=== PATIENT | female | born 1980 | race Two or more races ===

== ENCOUNTER 2016-10-15 17:49 | Emergency (ER) | payer OTHER ==
[~2016-10-15] VITALS: Ht 157.5 cm; Wt 59.0 kg
[2016-10-15 18:08] VITALS: BP 121/74
[2016-10-15] MEDS ORDERED: Norco 5mg/325mg tab ORAL ONE (18:45)
--- NOTE | 2016-10-15 19:02 | Emergency Room Report ---
History of Present Illness General Chief Complaint: Upper Extremity Injury Source: Patient Present Illness HPI 36 YO Female presents to the ED c/o 10/31 localized pain and tenderness to the left middle finger after it was accidentally slammed in a door earlier today at work. Pt states palpation and movement exacerbate the pain. denies bruises, reports some swelling. denies previous injury to the affected extremity. Denies numbness tingling or loss of sensation or gross motor movements of the extremities, incontinence of bowel or bladder. Denies CP, Palpitations, LOC, AMS , dizziness, Changes in Vision, Sensation, paresthesias, or a sudden severe headache. Allergies: Coded Allergies: No Known Allergies (Unverified , 10/15/16) Patient History Past Medical History: see triage record Past Surgical History: none Pertinent Family History: none Last Menstrual Period: 08/30/16 Now: No : 2 Para: 2 Reviewed Nursing Documentation: PMH: Agreed, PSxH: Agreed Nursing Documentation-PMH Hx Asthma: Yes Review of Systems All Other Systems: negative except mentioned in HPI Physical Exam Vital Signs Date Time Temp Pulse Resp B/P (MAP) Pulse Ox O2 Delivery O2 Flow Rate FiO2 10/15/16 17:58 98.2 80 18 121/74 99 Room Air Sp02 EP Interpretation: reviewed, normal General Appearance: no apparent distress, alert, GCS 15, non-toxic Head: normocephalic, atraumatic Eyes: bilateral eye normal inspection, bilateral eye PERRL ENT: hearing grossly normal, normal voice Neck: full range of motion Respiratory: lungs clear, normal breath sounds, speaking full sentences Cardiovascular #1: regular rate, rhythm, normal capillary refill Musculoskeletal: back normal, gait/station normal, normal range of motion, other - no evidence of subungual hematoma, tender - TTP to the PIP and DIP of the left middle finger, no obvious deformity, painful ROM, good capillary refill , no bruising. Neurologic: alert, oriented x3, responsive, motor strength/tone normal, sensory intact, speech normal Psychiatric: judgement/insight normal, memory normal, mood/affect normal Skin: normal color, no rash, warm/dry, well hydrated Medical Decision Making PA Attestation Dr. Moody is my supervising Physician whom patient management has been discussed with. Diagnostic Impression: Primary Impression: Fracture of finger of left hand Qualified Codes: S62.653A - Nondisplaced fracture of medial phalanx of left middle finger, initial encounter for closed fracture ER Course Pt. presents to the ED c/o 10/31 localized pain and tenderness to the left middle finger after it was accidentally slammed in a door earlier today at work. Ddx considered but are not limited to Fracture, dislocation, contusion, Sprain/ Strain/Spasm, Epidural abscess, Neoplastic mets. Vital signs: are WNL, pt. is afebrile H&PE are most consistent with musculoskeletal injury will perform imaging to r/ o fractures/dislocations. ORDERS: - X-ray Left hand 3 views - Positive for non-displaced distal middle phalanx fx of the left middle finger , Dislocation, or significant soft tissue injury, per preliminary read in ED by Dr. Moody - interpretation is scribed by ZELALEM. ED INTERVENTIONS: -[facility] PO -Finger Splint applied to the middle finger by cardiac technician. Pt. remains neurovascularly intact. DISCHARGE: At this time pt. is stable for d/c to home. Will provide printed patient care instructions, and any necessary prescriptions. Care plan and follow up instructions have been discussed with the patient prior to discharge. Last Vital Signs Date Time Temp Pulse Resp B/P (MAP) Pulse Ox O2 Delivery O2 Flow Rate FiO2 10/15/16 18:08 98.2 85 18 121/74 99 Room Air Disposition: HOME, SELF-CARE Condition: Stable Scripts Ibuprofen* (MOTRIN*) 600 Mg Tablet 600 MG ORAL THREE TIMES A DAY, #20 TAB 0 Refills Prov: Fely Perez P.A. 10/15/16 Hydrocodone Bit/Acetaminophen 5-325* (NORCO 5-325*) 1 Each Tablet 1 TAB ORAL Q6H Y for For Pain, #10 TAB 0 Refills Prov: Fely Perez P.A. 10/15/16 Referrals: NOT CHOSEN IPA/MD,REFERRING (PCP) Patient Instructions: Finger Fracture Additional Instructions: Take medications as directed. Follow up with a Primary Care Provider in 3-5 days, even if your symptoms have resolved. --Please review list of primary care clinics, if you do not already have a primary care provider Return sooner to ED if new symptoms occur, or current symptoms become worse. Do not drink alcohol, drive, or operate heavy machinery while taking [place] as this may cause drowsiness. - Please note that this Emergency Department Report was dictated using DocASAPsteel melter technology software, occasionally this can lead to erroneous entry secondary to interpretation by the dictation equipment. Fely Perez Oct 15, 2016 19:02
[2016-10-15] MEDS ORDERED: IBUPROFEN600 MG ORAL (19:03)
[2016-10-15] MEDS ORDERED: NORCO 5-325 TA1 EACH ORAL (19:03)
[2016-10-15 19:23] VITALS: BP 121/74
--- NOTE | 2016-10-16 08:52 | Diagnostic Imaging Report ---
Indication: pain Findings: 3 views of the left hand were obtained. Normal bony mineralization and alignment are demonstrated. No acute fractures, erosions, or periosteal reaction are seen. Soft tissues are unremarkable. Impression: Negative examination of the left hand.
== END 2016-10-15 19:25 | disposition home or self-care (01) ==
LOC: EMR 18:37
DX: S62.653A Nondisplaced fracture of middle phalanx of left middle finger, initial encounter for closed fracture (principal); W22.8XXA Striking against or struck by other objects, initial encounter; Y93.9 Activity, unspecified; Y99.0 Civilian activity done for income or pay
CPT/HCPCS: 99283

== ENCOUNTER 2018-05-06 18:29 | Emergency (ER) | payer OTHER ==
[~2018-05-06] VITALS: Ht 157.5 cm; Wt 61.2 kg
[~2018-05-06 18:29] MED LIST: IBUPROFEN600 MG ORAL; NORCO 5-325 TA1 EACH ORAL
[2018-05-06 18:42] VITALS: BP 119/77
--- NOTE | 2018-05-06 18:44 | NUR ---
ED Nurse Note: Pt smashed her L wrist on the door today at work. Swelling non-pitting noted, no discoloration. Pain 8/10 judah. Aox4, VSS. Will cont to monitor.
--- NOTE | 2018-05-06 18:53 | Emergency Room Report ---
History of Present Illness General Chief Complaint: Upper Extremity Injury Source: Patient (Chava Jha) Present Illness HPI 38-year-old female patient presents the ER complaining of left wrist injury 1 week ago. Reports that last week wrist was slammed in a door. Reports pain symptoms did not begin until a few days ago. Reports is still been going to work during this time. Reports has been taking Advil [id number] for pain symptoms. Reports decreased range of motion secondary to pain. Reports mild swelling. Reports pain radiating to her hands and shoulder. Denies other aggravating or relieving factors. Reports he is right-hand dominant. States she has been using a wrist brace. (Chava Jha) Allergies: Coded Allergies: No Known Allergies (Unverified , 10/15/16) Patient History Past Medical History: see triage record Last Menstrual Period: 03/2018 Now: No Reviewed Nursing Documentation: PMH: Agreed; PSxH: Agreed (Chava Jha) Nursing Documentation-PMH Past Medical History: No History, Except For Hx Asthma: Yes (Chava Jha) Review of Systems All Other Systems: negative except mentioned in HPI (Chava Jha) Physical Exam Vital Signs Date Time Temp Pulse Resp B/P (MAP) Pulse Ox O2 Delivery O2 Flow Rate FiO2 05/06/18 18:39 99.0 97 20 119/77 98 Room Air Sp02 EP Interpretation: reviewed, normal General Appearance: well appearing, no apparent distress, alert, GCS 15, non- toxic Head: normocephalic, atraumatic Eyes: bilateral eye normal inspection, bilateral eye PERRL ENT: hearing grossly normal, normal pharynx, no angioedema, normal voice, uvula midline, moist mucus membranes Neck: full range of motion Respiratory: lungs clear, normal breath sounds, no rhonchi, no respiratory distress, no accessory muscle use, no wheezing, speaking full sentences Cardiovascular #1: regular rate, rhythm, no edema Cardiovascular #2: 2+ radial (R), 2+ radial (L) Musculoskeletal: back normal, digits/nails normal, gait/station normal, normal range of motion, swelling - Mild over right wrist, other - NVI, cap refill less than 2 seconds, no snuffbox tenderness, no ecchymosis, tender - Dorsum and ulnar side of right wrist Psychiatric: mood/affect normal Skin: no rash (Chava Jha) Medical Decision Making PA Attestation Dr. Villafana is my supervising Physician whom patient management has been discussed with. (Chava Jha) Diagnostic Impression: Primary Impression: Wrist injury ER Course Pt. presents to the ED c/o left wrist pain. Ddx considered but are not limited to fracture, sprain, strain, contusion, dislocation. No erythema, no warmth to touch, no fever, nontoxic appearing, low suspicion for septic joint. Soft compartments, no pulselessness, no pallor, no paresthesias, low suspicion for compartment syndrome at this time. Vital signs: are WNL, pt. is afebrile Ordered X-ray and pain medication. ER COURSE Provided with pain medication. An X-ray of the wrist shows negative for acute disease. Discuss results with the patient. Provided patient with copy of results. Instructed patient to followup with PCP and discuss results of report with patient, discuss need for further treatment and referral. Likely contusion causing pain symptoms. Splint was applied to the left wrist was checked afterwards by me showing good alignment and support with distal neurovascular functioning intact. Patient instructed on RICE method: rest, ice, compression, elevation. Patient instructed on rest, ice and heat. Patient instructed to be WBAT Workmen's Compensation paperwork completed. Contact information for orthopedic urgent care provided, follow-up with urgent care if unable to followup with primary care provider and get referral to instructional design specialist. Followup with primary care provider. Discuss referral to ortho/pain management/ PT as needed. Discuss further imaging with MRI/CT as needed. DISCHARGE: At this time pt. is stable for d/c to home. Patient is resting comfortably, in no acute distress, nontoxic appearing, talking without difficulty. Will provide printed patient care instructions, and any necessary prescriptions. Patient instructed to follow with primary care provider in 3 - 5 days and to request further follow-up as needed. Care plan and follow up instructions have been discussed with the patient prior to discharge. Take medications as directed. Patient questions asked and answered. Patient reports understanding and agreement to treatment plan. ER precautions given, patient instructed to return to ER immediately for any new or worsening of symptoms. - Please note that this Emergency Department Report was dictated using Dragon college tutor technology software, occasionally this can lead to erroneous entry secondary to interpretation by the dictation equipment. (Chava Jha) Other X-Ray Diagnostic Results Other X-Ray Diagnostic Results : X-Ray ordered: Left wrist # of Views/Limited Vs Complete: 3 View Indication: Pain EP Interpretation: Yes PA Xray: Interpretation reviewed, by supervising MD, and agrees with findings. Interpretation: no dislocation, no soft tissue swelling, no fractures Impression: No acute disease PA Scribe Text Dimas Jha PA-C (Chava Jha) Other X-Ray Diagnostic Results : Electronically Signed by: Alfredo Wong documentation of Xray reviewed by me and is accurate, Nick Villafana MD (Nick Villafana MD) Last Vital Signs Date Time Temp Pulse Resp B/P (MAP) Pulse Ox O2 Delivery O2 Flow Rate FiO2 05/06/18 18:42 99.0 97 20 119/77 98 Room Air Status: improved (Chava Jha) Disposition: HOME, SELF-CARE Condition: Stable Scripts Ibuprofen* (MOTRIN*) 600 Mg Tablet 600 MG ORAL Q8H PRN for For Pain, #30 TAB 0 Refills Prov: Chava Jha 05/06/18 Patient Instructions: Wrist Pain, [id number] Additional Instructions: Patient instructed to follow up with primary care provider and discuss further referral to orthopedics/physical therapy/pain management as needed. If unable to followup with PCP, followup with orthopedic urgent care in 5-7 days , call to schedule appointment. Patient instructed on RICE method: rest, ice, compression, elevation. Patient instructed to WBAT. Take medications as directed. Patient questions asked and answered. ER precautions given, patient instructed to return to ER immediately for any new or worsening of symptoms. [facility] [address] [facility], [id number] [email or web address] Chava Jha May 06, 2018 18:53 Nick Villafana MD May 07, 2018 02:09
[2018-05-06] MEDS ORDERED: Ketorolac 30mg Inj IM ONE (19:00)
--- NOTE | 2018-05-06 19:07 | NUR ---
HAND-OFF: Report given to SANDRINE LOVELL. NO S/S OF DISTRES.
--- NOTE | 2018-05-06 19:24 | Diagnostic Imaging Report ---
EXAM: XR Left Wrist Complete, 3 or More Views CLINICAL HISTORY: left wrist PAIN TECHNIQUE: Frontal, lateral and oblique views of the left wrist. COMPARISON: none FINDINGS: Bones/joints: Unremarkable. No acute fracture. No dislocation. Soft tissues: Unremarkable. No radiopaque foreign body. IMPRESSION: Normal left wrist x-rays.
[2018-05-06] MEDS ORDERED: IBUPROFEN600 MG ORAL (20:03)
[2018-05-06 20:09] VITALS: BP 119/77
--- NOTE | 2018-05-06 20:09 | NUR ---
ER DISCHARGE NOTE: Patient is cleared to be discharged per ERMD, pt is aox4, on room air, with stable vital signs. pt was given dc and prescription instructions, pt was able to verbalize understanding, pt id band removed. pt is able to ambulate with steady gait. pt took all belongings.
== END 2018-05-06 20:09 | disposition home or self-care (01) ==
LOC: EMR 20:00
DX: S69.92XA Unspecified injury of left wrist, hand and finger(s), initial encounter (principal); W22.8XXA Striking against or struck by other objects, initial encounter; Y92.89 Other specified places as the place of occurrence of the external cause; Y99.0 Civilian activity done for income or pay; J45.909 Unspecified asthma, uncomplicated
CPT/HCPCS: 73110; 96372; 99283; J1885